=== PATIENT | female | born 1945 | race Caucasian/White ===

== ENCOUNTER → 2016-10-10 | Outpatient (CLI) | payer MEDICARE ==
[~2016-10-10] MED LIST: LIDOCAINE 1%, 20ML ONE; SODIUM BICARBONATE 4.2%, 5ML ONE
== END | disposition home or self-care (01) ==
LOC: RAD 13:05
PROVIDERS: ATTEND Otolaryngology
DX: R22.0 Localized swelling, mass and lump, head (principal)
CPT/HCPCS: 76536; J3490

== ENCOUNTER 2019-10-05 12:43 | Emergency (ER) | payer MEDICARE ==
[~2019-10-05] VITALS: Ht 157.5 cm; Wt 63.4 kg
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
[2019-10-05] MEDS ORDERED: L.E.T SOLUTION TP ONE ×2 (13:29→13:30)
[2019-10-05] MEDS ORDERED: LIDOCAINE 1%-EPI 1:100K, 20ML ONE (13:29)
[2019-10-05] MEDS ORDERED: LIDOCAINE 1%-EPI 1:100K, 20ML SQ ONE (13:30)
--- NOTE | 2019-10-05 13:33 | NUR ---
PT TO XRAY AT THIS TIME.
--- NOTE | 2019-10-05 13:54 | NUR ---
LET SOLUTION APPLIED ON WOUND AT THIS TIME. PT TOLERATED WELL.
--- NOTE | 2019-10-05 14:16 | NUR ---
EMT AT BEDSIDE TO IRRIGATE WOUND AT THIS TIME. PT TOLERATED WELL.
[2019-10-05 14:48] VITALS: BP 164/71
--- NOTE | 2019-10-05 14:49 | NUR ---
SUTURES DONE AT BEDSIDE BY PA. PT TOLERATED WELL. PT'S AOX4. RESPS EVEN AND UNLABORED.
--- NOTE | 2019-10-05 15:10 | NUR ---
Patient given discharge instructions and they have confirmed that they understand the instructions.
== END 2019-10-05 15:12 | disposition home or self-care (01) ==
LOC: ED 15:05
DX: S05.32XA Ocular laceration without prolapse or loss of intraocular tissue, left eye, initial encounter (principal); S80.211A Abrasion, right knee, initial encounter; W01.0XXA Fall on same level from slipping, tripping and stumbling without subsequent striking against object, initial encounter; Y93.89 Activity, other specified; Y92.009 Unspecified place in unspecified non-institutional (private) residence as the place of occurrence of the external cause; Y99.8 Other external cause status
CPT/HCPCS: 12011; 70450; 70486; 99285

== ENCOUNTER 2020-10-04 15:14 | Emergency (ER) | payer MEDICARE, OTHER ==
[~2020-10-04] VITALS: Ht 157.5 cm; Wt 63.6 kg
--- NOTE | 2020-10-04 17:30 | NUR ---
PT RESTING CALMLY IN BED AT THIS TIME. AT BEDSIDE. AWAITING ERP EVAL.
[2020-10-04] MEDS ORDERED: ALBUTEROL SULFATE 2.5 MG/3 ML NPPB ONE (18:00)
--- NOTE | 2020-10-04 18:05 | NUR ---
PT TO IMAGING
[2020-10-04 18:21] LABS: BASOPHILS % (AUTO) 1 % (0-1); EOSINOPHILS % (AUTO) 2 % (1-7); LYMPHOCYTES % (AUTO) 45 % (22-44); MEAN CORPUSCULAR HEMOGLOBIN 31.8 pg (27.0-34.8); MEAN CORPUSCULAR HGB CONC 34.2 g/dL (32.4-35.8); MEAN PLATELET VOLUME 8.1 fL (7.4-10.4); MONOCYTES % (AUTO) 10 % (2-9); NEUTROPHILS % (AUTO) 43 % (42-75); PLATELET COUNT 335 x10^3/uL (130-400); RED BLOOD COUNT 5.22 x10^6/uL (3.82-5.3); RED CELL DISTRIBUTION WIDTH 12.9 % (9.6-15.2)
[2020-10-04 18:32] LABS: ALBUMIN 3.6 g/dL (3.4-5.0); CHLORIDE 105 mmol/L (98-107)
[2020-10-04 18:37] LABS: ALANINE AMINOTRANSFERASE 24 U/L (12-78); ALKALINE PHOSPHATASE 63 U/L (45-117); ANION GAP 6 mmol/L (5-15); BILIRUBIN,TOTAL 0.3 mg/dL (0.2-1.0); CALCIUM 9.4 mg/dL (8.5-10.1); CREATININE 0.82 mg/dL (0.55-1.02); TOTAL PROTEIN 7.7 g/dL (6.4-8.2)
--- NOTE | 2020-10-04 18:48 | NUR ---
RECEIVED REPORT FROM LOREN CEJA TO ASSUME CARE OF PT.
[2020-10-04] MEDS ORDERED: ALBUTEROL SULFATE 2.5 MG/3 ML ONE (18:49)
--- NOTE | 2020-10-04 19:10 | NUR ---
BREATING TX COMPLETED. PT. STATES FEELS THE SAME BEFORE THE TX. NO RESP DISTRESS VISIBLE BUT PT. C/O FEELING SOB. RA SAT AFTER TX 100%
--- NOTE | 2020-10-04 19:31 | NUR ---
DR. FOUNTAIN TO BS FOR RECHECK.
[2020-10-04] MEDS ORDERED: OMNIPAQUE 350 MG/ML, 100ML BOTTLE ONE (20:32)
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
--- NOTE | 2020-10-04 21:02 | NUR ---
PT. REPORTS CP HAS RESOLVED NOW. AWAITING PROVIDER RECHECK.
--- NOTE | 2020-10-04 21:18 | NUR ---
DR. FOUNTAIN BACK IN FOR [facility]. NEW ORDERS FOR MORE LAB WORK.
[2020-10-04 21:32] LABS: TROPONIN I < 0.015 ng/mL (0.000-0.045)
--- NOTE | 2020-10-04 21:48 | NUR ---
PT. RESTING ON GURNEY WITH NO DISTRESS NOTED. AWAITING PROVIER RECHECK.
--- NOTE | 2020-10-04 22:28 | NUR ---
DR. FOUNTAIN BACK IN TO DISCUSS PLAN FOR D/C WITH PT.
[2020-10-04 22:41] VITALS: BP 153/59
== END 2020-10-04 22:53 | disposition home or self-care (01) ==
LOC: ED 18:56
DX: R06.00 Dyspnea, unspecified (principal); R94.31 Abnormal electrocardiogram [ECG] [EKG]; R10.9 Unspecified abdominal pain; R05 Cough
CPT/HCPCS: 36415; 74021; 74177; 80053; 83690; 84484; 85025; 93005; 94640; 99285; J7613; Q9967